=== PATIENT | female | born 1960 | race Caucasian/White ===

== ENCOUNTER → 2019-11-19 | Outpatient (CLI) | payer BC ==
[~2019-11-19] MED LIST: CYCL10 PO; ETOD500 PO; FAMO20 PO; HYDACE5325 PO; HYDSUL200 PO; LEVFLO250 PO; LISI5 PO; PRED20 PO; RANI150 PO; RXCYCL10 PO; RXHYD5325 PO
== END | disposition home or self-care (01) ==
LOC: PLD 10:35 → LAB SHORT 10:35
DX: L72.9 Follicular cyst of the skin and subcutaneous tissue, unspecified (principal)
CPT/HCPCS: 88304

== ENCOUNTER → 2021-06-29 | Outpatient (CLI) | payer BC | LOC: LAB SHORT 11:03 → LAB 11:03 | DX: D48.5 Neoplasm of uncertain behavior of skin (principal) | CPT/HCPCS: 88305 ==

== ENCOUNTER → 2022-06-09 | Outpatient (CLI) | payer BC | END | disposition home or self-care (01) | LOC: PLD 14:10 | DX: M67.449 Ganglion, unspecified hand (principal) ==